=== PATIENT | male | born 1950 | race American Indian/Alaskan Native ===

== ENCOUNTER 2018-11-21 18:15 | Emergency (ER) | payer MEDICARE, OTHER ==
--- NOTE | 2018-11-21 19:43 | Emergency Department Report ---
ED Syncope HPI - General Chief Complaint: Syncope Stated Complaint: HYPOTENSIVE Time Seen by Provider: 11/21/18 19:31 - History of Present Illness Initial Comments: Patient is 67 years old male with no significant past medical history except for hyperlipidemia. Patient brought to the emergency room via EMS for evaluation of one episode of syncope that happened while patient at work. Patient stated that he was sitting and all of a sudden he started sweating and became lightheaded. Patient denied any chest pain, shortness of breath, headache or focal weakness during this episode. EMS stated that when arrived to the patient his blood pressure was 80/42. Patient has one episode of emesis. Patient now is alert, oriented 3 in no acute distress. Timing/Prior Episodes: no prior history, single episode today Precipitating Factors: Positive: lightheadedness Context: sitting Loss of Consciousness: no loss of consciousness Current Symptoms: back to normal - Related Data Allergies/Adverse Reactions: Allergies No Known Allergies Allergy (Unverified 11/21/18 19:26) ED Review of Systems ROS: Stated complaint: HYPOTENSIVE Other details as noted in HPI Comment: All other systems reviewed and negative Constitutional: denies: chills, diaphoresis Respiratory: denies: cough, shortness of breath, SOB with exertion, SOB at rest, wheezing Cardiovascular: denies: chest pain, palpitations Gastrointestinal: vomiting. denies: abdominal pain, nausea, diarrhea, constipation, hematemesis, melena, hematochezia Musculoskeletal: denies: back pain Neurological: denies: headache, weakness, numbness, paresthesias, confusion, abnormal gait ED Past Medical Hx - Past Medical History Previous Medical History?: Yes Additional medical history: Hyperlipidemia - Surgical History Past Surgical History?: No ED Physical Exam - General Limitations: No Limitations General appearance: alert, in no apparent distress - Head Head exam: Present: atraumatic, normocephalic, normal inspection - Eye Eye exam: Present: normal appearance, PERRL - ENT ENT exam: Present: normal exam, normal orophraynx, mucous membranes moist - Neck Neck exam: Present: normal inspection, full ROM. Absent: tenderness, meningismus, lymphadenopathy, thyromegaly - Respiratory Respiratory exam: Present: normal lung sounds bilaterally. Absent: respiratory distress, wheezes, rales, rhonchi, stridor, chest wall tenderness, accessory muscle use, decreased breath sounds, prolonged expiratory - Cardiovascular Cardiovascular Exam: Present: regular rate, normal rhythm, normal heart sounds - GI/Abdominal GI/Abdominal exam: Present: soft, normal bowel sounds. Absent: distended, tenderness, guarding, rebound, rigid, organomegaly, mass, bruit, pulsatile mass, hernia - Extremities Exam Extremities exam: Present: normal inspection, full ROM, normal capillary refill. Absent: tenderness, pedal edema, joint swelling, calf tenderness - Back Exam Back exam: Present: normal inspection, full ROM. Absent: CVA tenderness (R), CVA tenderness (L), muscle spasm, paraspinal tenderness, vertebral tenderness - Neurological Exam Neurological exam: Present: alert, oriented X3, CN II-XII intact, normal gait, reflexes normal - Psychiatric Psychiatric exam: Present: normal mood - Skin Skin exam: Present: warm, intact, normal color ED Course Vital Signs 11/21/18 11/21/18 11/21/18 18:55 19:38 19:50 Pulse Rate 86 81 Respiratory 21 17 Rate Blood Pressure 117/72 [Right] O2 Sat by Pulse 97 98 Oximetry ED Medical Decision Making - Lab Data Result diagrams: 11/21/18 20:07 11/21/18 20:07 - EKG Data -: EKG Interpreted by Vt EKG shows normal: sinus rhythm Rate: normal - EKG Data Interpretation: no acute changes - Radiology Data Radiology results: report reviewed - Medical Decision Making Patient is 67 years old male with no significant past medical history except for hyperlipidemia. Patient brought to the emergency room via EMS for evaluation of one episode of syncope that happened while patient at work. Patient stated that he was sitting and all of a sudden he started sweating and became lightheaded. Patient denied any chest pain, shortness of breath, headache or focal weakness during this episode. EMS stated that when arrived to the patient his blood pressure was 80/42. Patient has one episode of emesis. Patient now is alert, oriented 3 in no acute distress. Patient remained asymptomatic in the ER. No more syncopal episode. Labs reviewed and is unremarkable. EKG is normal sinus rhythm no ST elevation or depression. CT read as negative for acute findings. Patient advised to follow- up with his primary care physician in the next 2-3 days and to return to the ER if symptoms are not improved. Critical care attestation.: If time is entered above; I have spent that time in minutes in the direct care of this critically ill patient, excluding procedure time. ED Disposition Clinical Impression: Syncope Disposition: DC-01 TO HOME OR SELFCARE Is pt being admited?: No Condition: Stable Instructions: Syncope (ED) Referrals: PRIMARY CARE, [Referring] - 3-5 Days
[2018-11-21 20:17] LABS: Basophils % (Auto) 0.2 % (0.0-1.8); Eosinophils % (Auto) 0.4 % (0.0-4.3); Hematocrit 36.2 % (35.5-45.6); Hemoglobin 12.1 gm/dl (11.8-15.2); Lymphocytes # (Auto) 1.2 K/mm3 (1.2-5.4); Lymphocytes % (Auto) 11.4 % (13.4-35.0); Mean Corpuscular HGB Conc 34 % (32-34); Mean Corpuscular Volume 96 fl (84-94); Monocytes # (Auto) 0.4 K/mm3 (0.0-0.8); Monocytes % (Auto) 3.6 % (0.0-7.3); Platelet Count 196 K/mm3 (140-440); Red Blood Count 3.78 M/mm3 (3.65-5.03); Red Cell Distribution Width 13.2 % (13.2-15.2)
--- NOTE | 2018-11-21 20:20 | Cat Scan Report ---
CT head/brain wo con INDICATION: Syncope, dizziness. TECHNIQUE: Routine CT head without contrast. All CT scans at this location are performed using CT dos e reduction for ALARA by means of automated exposure control. COMPARISON: None. FINDINGS: BRAIN / INTRACRANIAL CONTENTS: No acute hemorrhage, mass effect, midline shift, or hydrocephalus. No appreciable acute large territorial or lacunar infarct. No chronic infarct or focal atrophy. Normal b rain volume and ventricular/sulcal size for age. ORBITS: No significant abnormality of visualized orbits. SINUSES / MASTOIDS: No significant abnormality of visualized sinuses and mastoid air cells. ADDITIONAL FINDINGS: None. IMPRESSION: 1. No acute intracranial abnormality. Signer Name: Solitario Bal MD Signed: 11/21/2018 8:16 PM Workstation Name: [id number]
[2018-11-21 20:30] LABS: BUN/Creatinine Ratio 41; Blood Urea Nitrogen 41 mg/dL (9-20); Calcium 9.3 mg/dL (8.4-10.2); Hemolysis Index 12
[2018-11-21 20:34] LABS: Alanine Aminotransferase 23 units/L (7-56); Albumin 4.5 g/dL (3.9-5)
[2018-11-21 20:35] LABS: Bilirubin,Direct < 0.2 mg/dL (0-0.2)
--- NOTE | 2018-11-21 20:49 | XRay Report ---
CHEST 1 VIEW INDICATION: Chest Pain. COMPARISON: none FINDINGS: SUPPORT DEVICES: None. HEART / MEDIASTINUM: No significant abnormality. LUNGS / PLEURA: No significant pulmonary or pleural abnormality. No pneumothorax. ADDITIONAL FINDINGS: IMPRESSION: 1. No acute findings. Signer Name: Estevan Coleman MD Signed: 11/21/2018 8:45 PM Workstation Name: [id number]
[2018-11-21 20:52] VITALS: BP 124/76
== END 2018-11-21 21:18 | disposition home or self-care (01) ==
LOC: ED 18:15
DX: R55 Syncope and collapse (principal); E78.00 Pure hypercholesterolemia, unspecified
CPT/HCPCS: 36415; 70450; 71045; 80048; 80076; 84484; 85025; 93005; 93010; 99285

== ENCOUNTER 2021-12-08 08:01 | Emergency (ER) | payer MEDICARE, OTHER ==
[2021-12-08 08:08] VITALS: BP 134/90
[2021-12-08] MEDS ORDERED: ACETAMINOPHEN 500 MG TAB PO ONE (08:18)
--- NOTE | 2021-12-08 09:00 | XRay Report ---
CHEST 2 VIEWS INDICATION / CLINICAL INFORMATION: fever. COMPARISON: 11/21/2018 FINDINGS: SUPPORT DEVICES: None. HEART / MEDIASTINUM: No significant abnormality. LUNGS / PLEURA: Subtle small airspace opacity has developed in the lower right upper lobe just latera l to the right hilum. There also appears to be patchy infiltrate or atelectasis in the left lower lob e. No pleural effusion or pneumothorax. ADDITIONAL FINDINGS: No significant additional findings. IMPRESSION: 1. Bilateral infiltrates as described. New since 2018. Signer Name: Jese Norman Jr, MD Signed: 12/08/2021 8:56 AM Workstation Name: [id number]
[2021-12-08] MEDS ORDERED: BENZONATATE 100 MG CAP PO ONE (09:59)
[2021-12-08] MEDS ORDERED: ACETAMINOPHEN 325 MG TAB PO ONE (09:59)
[2021-12-08] MEDS ORDERED: DOXYCYCLINE 100 MG CAP PO ONE (09:59)
[2021-12-08] MEDS ORDERED: predniSONE 20 MG TAB PO ONE (09:59)
[2021-12-08] MEDS ORDERED: ACETAMINOPHEN W/CODEINE 300-30 MG TAB PO ONE (09:59)
--- NOTE | 2021-12-08 10:37 | Emergency Department Report ---
ED ENT HPI - General Chief complaint: Sore Throat Stated complaint: SORE THROAT Time Seen by Provider: 12/08/21 09:27 Source: patient Mode of arrival: Ambulatory Limitations: No Limitations - History of Present Illness Initial comments: 70 yo black male with no pmh presents to ed for evaluation of 3 day history of sore throat, productive cough, and intermittent fever. HE denies sob, cp, n/v, and dizziness. He states that throat pain is 10/10. MD complaint: sore throat, other (cough) Associated Symptoms: fever, cough, pain with swallowing, sore throat, rhinorrhea. denies: gum swelling, toothache, tinnitus, hearing loss, discharge from ear - Related Data Previous Rx's Medication Instructions Recorded Last Taken Type Benzonatate [Tessalon Perles] 100 mg PO Q8HR PRN #30 cap 12/08/21 Unknown Rx DOXYCYCLINE Hyclate [Vibramycin] 100 mg PO Q12HR #14 capsule 12/08/21 Unknown Rx guaiFENesin/CODEINE [Robitussin AC] 10 ml PO TID PRN #120 ml 12/08/21 Unknown Rx predniSONE [Deltasone] 50 mg PO QDAY #5 tab 12/08/21 Unknown Rx Allergies Allergy/AdvReac Type Severity Reaction Status Date / Time No Known Allergies Allergy Verified 12/08/21 08:09 ED Dental HPI - General Chief complaint: Sore Throat Stated complaint: SORE THROAT Time Seen by Provider: 12/08/21 09:27 Source: patient Mode of arrival: Ambulatory Limitations: No Limitations - Related Data Previous Rx's Medication Instructions Recorded Last Taken Type Benzonatate [Tessalon Perles] 100 mg PO Q8HR PRN #30 cap 12/08/21 Unknown Rx DOXYCYCLINE Hyclate [Vibramycin] 100 mg PO Q12HR #14 capsule 12/08/21 Unknown Rx guaiFENesin/CODEINE [Robitussin AC] 10 ml PO TID PRN #120 ml 12/08/21 Unknown Rx predniSONE [Deltasone] 50 mg PO QDAY #5 tab 12/08/21 Unknown Rx Allergies Allergy/AdvReac Type Severity Reaction Status Date / Time No Known Allergies Allergy Verified 12/08/21 08:09 ED Review of Systems ROS: Stated complaint: SORE THROAT Other details as noted in HPI Comment: All other systems reviewed and negative Constitutional: fever. denies: chills, malaise, weakness Eyes: denies: vision change ENT: throat pain, congestion Respiratory: cough. denies: shortness of breath, SOB with exertion, SOB at rest, stridor, wheezing Cardiovascular: denies: chest pain, palpitations, dyspnea on exertion Gastrointestinal: denies: abdominal pain, nausea, vomiting Genitourinary: denies: urgency, dysuria Musculoskeletal: denies: back pain Neurological: denies: headache, weakness ED Past Medical Hx - Past Medical History Previous Medical History?: No Additional medical history: Hyperlipidemia - Surgical History Past Surgical History?: No - Social History Smoking Status: Never Smoker Substance Use Type: None - Medications Home Medications: Home Medications Medication Instructions Recorded Confirmed Last Taken Type Benzonatate [Tessalon Perles] 100 mg PO Q8HR PRN #30 cap 12/08/21 Unknown Rx DOXYCYCLINE Hyclate [Vibramycin] 100 mg PO Q12HR #14 capsule 12/08/21 Unknown Rx guaiFENesin/CODEINE [Robitussin AC] 10 ml PO TID PRN #120 ml 12/08/21 Unknown Rx predniSONE [Deltasone] 50 mg PO QDAY #5 tab 12/08/21 Unknown Rx ED Physical Exam - General Limitations: No Limitations General appearance: alert, in no apparent distress - Head Head exam: Present: atraumatic, normocephalic - Eye Eye exam: Present: normal appearance. Absent: conjunctival injection, periorbital swelling, periorbital tenderness - ENT ENT exam: Present: mucous membranes moist. Absent: normal exam (bilateral nasal mucosal edema with turbinate swelling and purulent drainage), normal orophraynx (erythema noted to posterior oropharynx ) - Neck Neck exam: Present: lymphadenopathy. Absent: tenderness - Respiratory Respiratory exam: Present: normal lung sounds bilaterally. Absent: respiratory distress, wheezes, rales, rhonchi, stridor, chest wall tenderness - Cardiovascular Cardiovascular Exam: Present: tachycardia, normal heart sounds - GI/Abdominal GI/Abdominal exam: Present: soft, normal bowel sounds. Absent: distended, tenderness, guarding, rebound, rigid - Extremities Exam Extremities exam: Present: normal inspection, full ROM, normal capillary refill. Absent: tenderness, pedal edema, joint swelling, calf tenderness - Back Exam Back exam: Present: normal inspection. Absent: CVA tenderness (R), CVA tenderness (L), vertebral tenderness - Neurological Exam Neurological exam: Present: alert, oriented X3, CN II-XII intact, normal gait, reflexes normal. Absent: motor sensory deficit - Psychiatric Psychiatric exam: Present: normal affect, normal mood - Skin Skin exam: Present: warm, dry, intact, normal color ED Course Vital Signs 12/08/21 12/08/21 12/08/21 08:04 09:51 11:12 Temperature 100.8 F H 100.1 F H Pulse Rate 115 H Respiratory 18 16 Rate Blood Pressure 134/90 [Right] O2 Sat by Pulse 100 100 Oximetry ED Medical Decision Making - Medical Decision Making 70 yo black male with no pmh presents to ed for evaluation of 3 day history of sore throat, productive cough, and intermittent fever. HE denies sob, cp, n/v, and dizziness. He states that throat pain is 10/10. Physical exam consistent with acute bacterial rhinosinusitis and patient will be d/chino home with doxycycline, prednisone, tessalone perles, and robitussin AC. He is advised to follow up with his pcp if no improvement or worsening symptoms and return to ed as needed. Critical care attestation.: If time is entered above; I have spent that time in minutes in the direct care of this critically ill patient, excluding procedure time. ED Disposition Clinical Impression: Acute bacterial rhinosinusitis Disposition: 01 HOME / SELF CARE / HOMELESS Is pt being admited?: No Does the pt Need Aspirin: No Condition: Stable Instructions: Antibiotic Medicine, Adult, [id number], Sinusitis, Adult, [id number] Additional Instructions: Take medications as prescribed. Follow-up with your primary care provider if no improvement or worsening symptoms. Return to the emergency department as needed. Prescriptions: predniSONE [Deltasone] 50 mg PO QDAY #5 tab guaiFENesin/CODEINE [Robitussin AC] 10 ml PO TID PRN #120 ml PRN Reason: Cough Benzonatate [Tessalon Perles] 100 mg PO Q8HR PRN #30 cap PRN Reason: Cough DOXYCYCLINE Hyclate [Vibramycin] 100 mg PO Q12HR #14 capsule Referrals: SIRI KIMBLE MD [Staff Physician] - 3-5 Days Time of Disposition: 10:36
== END 2021-12-08 11:13 | disposition home or self-care (01) ==
LOC: ED 08:01
DX: J01.80 Other acute sinusitis (principal); B96.89 Other specified bacterial agents as the cause of diseases classified elsewhere
CPT/HCPCS: 71046; 99283